=== PATIENT | female | born 1945 | race Caucasian/White ===

== ENCOUNTER 2017-12-26 14:12 | Observation (INO) | payer OTHER ==
[2017-12-26] MEDS ORDERED: 0.9 % SODIUM CHLORIDE 1,000 ML IV ONE (14:38)
[2017-12-26 14:40] LABS: BASOPHILS % 0.5 (0.0-1.5); EOSINOPHILS % 1.7 % (0.0-6.8); MEAN CORPUSCULAR HEMOGLOBIN 30.4 pg (28.0-34.0); MEAN CORPUSCULAR VOLUME 91.8 fl (80.0-100.0); MONOCYTES % 3.3 % (0.0-11.0); NEUTROPHILS # 6.7 # k/uL (1.4-7.7)
[2017-12-26 15:03] LABS: eGFR (African) > 60; eGFR (Non-African) > 60
[2017-12-26] MEDS ORDERED: LORazepam 2 MG/ML VIAL IVP ONE (15:53)
[2017-12-26] MEDS ORDERED: CloNIDine HCL 0.1 MG TABLET PO ONE ×2 (15:53→15:55)
[2017-12-26] MEDS ORDERED: LORazepam 2 MG/ML VIAL ONE (15:55)
--- NOTE | 2017-12-26 16:01 | ED Physician Documentation ---
General Adult - HISTORIAN Historian: patient - HPI Stated Complaint: dizziness Chief Complaint: General Adult Onset: days ago Timing: worse Further Comments: yes (72 year old female patient brought in from home by EMS. EMS report home was around 90 degree inside with only 1 window unit. Patient complaints of dizziness for the past few weeks, chronic back pain, lost her significant other 2 weeks ago. Stopped all of her daily medications 2-2.5 years ago. "I couldn't leave the house to go to the doctor." Patient complains of worsening anxiety and panic attacks. C/O palpitations.) - ROS CONST: no problems EYES/ENT: none CVS/RESP: other (palpitations) GI/: none MS/SKIN/LYMPH: back pain (chronic) NEURO/PSYCH: headache, dizziness, anxiety. denies: fainting, tingling, numbness, difficulty walking, difficulty with speech, depression - PAST HX Past History: hypertension, other (HLD, hypothyroidism, anxiety, agoraphobia) Surgeries/Procedures: hysterectomy, other (cataract surgery; skin cancer removed from right cheek) Allergies/Adverse Reactions: Allergies Allergy/AdvReac Type Severity Reaction Status Date / Time No Known Drug Allergies Allergy Verified 12/26/17 15:30 Home Medications: Ambulatory Orders Medication Instructions Recorded Diazepam 2 mg PO DAILY PRN u2 11/24/13 - SOCIAL HX Smoking History: cigarettes (1 ppd) Alcohol Use: other (3 beers per day) - FAMILY HX Family History: No - VITAL SIGNS Vital Signs: Vital Signs Temp Pulse Resp BP Pulse Ox 98.7 F 65 22 211/107 98 12/26/17 14:15 12/26/17 15:30 12/26/17 14:15 12/26/17 14:15 12/26/17 15:30 - REVIEWED ASSESSMENTS Nursing Assessment Reviewed: Yes Vitals Reviewed: Yes Progress - Progress Progress: Patient lives home alone; continues to c/o dizziness. Discussed plan of care w ith daughter. Offered observation admission to restart daily medications. Patient is fall risk due to dizziness. Recommended daily anxiety medication for panic attacks and agoraphobia. Patient is willing to stay observation. Will need to re-establish PCP. Call to Dr Nesbitt. Agrees with admission; will restart lisinopril/HCTZ, levothyroxine, and simvastatin. Will check HgbA1C, thyroid panel and FLP in AM. Will keep on tele due to cardiomegaly on xray and patient's continued c/o palpitations. Occasional PVC noted. - EKG/XRAY/CT EKG: rhythm (SR with occassional PVC. ) ED Results Lab/Radiology - Lab Results Lab Results: Lab Results 12/26/17 12/26/17 12/26/17 14:30 14:30 14:30 WBC 9.60 K/ul K/ul (4.00-12.00) RBC 5.06 M/ul M/ul (3.90-5.20) Hgb 15.4 g/dL g/dL (12.0-16.0) Hct 46.5 % % (34.5-46.5) MCV 91.8 fl fl (80.0-100.0) MCH 30.4 pg pg (28.0-34.0) MCHC 33.2 g/dL g/dL (30.0-36.0) RDW 14.2 % % (11.3-14.3) Plt Count 366 K/mm3 K/mm3 (130-400) Neut % (Auto) 70.0 % % (39.0-79.0) Lymph % (Auto) 23.5 % % (16.0-50.0) [place] % (Auto) 3.3 % % (0.0-11.0) Eos % (Auto) 1.7 % % (0.0-6.8) Baso % (Auto) 0.5 (0.0-1.5) Neut # (Auto) 6.7 # k/uL # k/uL (1.4-7.7) Lymph # (Auto) 2.3 # k/uL # k/uL (0.6-4.0) [place] # (Auto) 0.3 # k/uL # k/uL (0.0-0.9) Eos # (Auto) 0.2 # k/uL # k/uL (0.0-0.6) Baso # (Auto) 0.0 # k/uL # k/uL (0.0-0.5) Reactive Lymphs % 1.0 % % (0.0-5.0) Reactive Lymphs # 0.1 # k/uL # k/uL (0.0-0.8) Sodium 138 mmol/L mmol/L (136-145) Potassium 3.9 mmol/L mmol/L (3.5-5.1) Chloride 106 mmol/L mmol/L (98-107) Carbon Dioxide 22 mmol/L mmol/L (22-30) BUN 11 mg/dL mg/dL (7-17) Creatinine 0.70 mg/dL mg/dL (0.52-1.04) Est GFR ( Amer) > 60 (60 - ) Est GFR (Non-Af Amer) > 60 (60 - ) Glucose 144 mg/dL H mg/dL (74-106) Calcium 8.6 mg/dL mg/dL (8.4-10.2) Total Bilirubin 0.3 mg/dL mg/dL (0.2-1.3) AST 14 U/L L U/L (15-46) ALT 18 U/L U/L (13-69) Alkaline Phosphatase 80 U/L U/L (38-126) Troponin I < 0.03 ng/mL L ng/mL (0.03-0.06) Total Protein 7.4 g/dL g/dL (6.3-8.2) Albumin 3.9 g/dL g/dL (3.5-5.0) - Radiology Radiology Impressions: Chest, AP portable History: Cough, hypoxia Findings: No infiltrate, effusion or pneumothorax is present. The heart is enlarged. Pulmonary vascularity is normal. Left hilar enlargement is suspected. Correlation with prior studies is recommended. If further evaluation is desired, computed tomography may be helpful. Impression: Cardiomegaly. Possible left hilar enlargement. Electronically signed on Dec 26, 2017 3:08:31 PM CDT by: Alex Elkins - Orders Orders: ED Orders Category Date Time Status Continuous EKG monitoring Q30M Care 12/26/17 14:15 Active Continuous Pulse Oximetry Q30M Care 12/26/17 14:[address] IV Lock 1T Care 12/26/17 14:15 Active CHEST 1VIEW [RAD] Stat Exams 12/26/17 14:31 Taken CBC/PLATELET/DIFF Stat Lab 12/26/17 14:30 Completed CMP Stat Lab 12/26/17 14:30 Completed TROPONIN I (cTnI) Stat Lab 12/26/17 14:30 Completed UA W/MICRO IF INDICATED Stat Lab 12/26/17 14:15 Ordered 0.9 % Sodium Chloride [Normal Saline] 1,000 ml Med 12/26/17 14:38 Discontinued IV NOW CloNIDine HCL [Catapress] Med 12/26/17 15:55 Discontinued 0.1 mg PO .STK-MED ONE CloNIDine HCL [Catapress] Med 12/26/17 15:53 Once 0.1 mg PO NOW ONE LORazepam [Ativan] Med 12/26/17 15:53 Once 0.5 mg IVP NOW ONE LORazepam [Ativan] Med 12/26/17 15:55 Discontinued 2 mg .ROUTE .STK-MED ONE Oxygen Daily Oxygen 12/26/17 14:45 Ordered EKG WITH COMPARISON Stat Ther 12/26/17 14:30 Ordered General Adult Physical Exam - PHYSICAL EXAM GENERAL APPEARANCE: anxious EENT: eye inspection normal, ENT inspection normal, pharynx normal, PATT, no nystagmus RESPIRATORY: no resp distress, chest non-tender, breath sounds normal, other (crackles on right posterior base) CVS: reg rate & rhythm, heart sounds normal, equal pulses, no murmur, no gallop, PMI nml, no JVD, no friction rub, occasional extrasystoles ABDOMEN: soft, no organomegaly, normal bowel sounds, no abdominal bruit, no distension, other (obese) BACK: normal inspection, no CVA tenderness SKIN: normal color, warm/dry, NR, INT, PAL, DR EXTREMITIES: non-tender, normal range of motion, no evidence of injury, no edema, J, LIFE MANAGER NEURO: oriented X3, CN's nml as tested, motor nml, sensation nml, mood/affect nml Discharge Clincal Impression: Anxiety, Cardiomegaly, Tobacco abuse, Agoraphobia with panic attacks Hypertension Qualifiers: Hypertension type: essential hypertension Qualified Code(s): I10 - Essential (primary) hypertension Condition: Stable Disposition: ADMITTED INPATIENT Decision to Admit: [id number] Decision Time: 16:02
[2017-12-26] MEDS ORDERED: CITALOPRAM HYDROBROMIDE 20 MG TABLET PO ONE (16:22)
[2017-12-26] MEDS: SIMVASTATIN 40 MG TABLET PO SCH ×2 (17:16→20:10)
[2017-12-26] MEDS ORDERED: LEVOTHYROXINE SODIUM 25 MCG TABLET ONE (17:50)
[2017-12-26] MEDS ORDERED: CITALOPRAM HYDROBROMIDE 20 MG TABLET ONE (17:50)
[2017-12-26] MEDS ORDERED: LISINOPRIL 20 MG TABLET ONE (17:50)
[2017-12-26] MEDS ORDERED: SIMVASTATIN 40 MG TABLET ONE (17:50)
[2017-12-26] MEDS ORDERED: LEVOTHYROXINE SODIUM 100 MCG TABLET ONE (17:51)
[2017-12-26] MEDS: LEVOTHYROXINE SODIUM 100 MCG TABLET PO SCH (17:56)
[2017-12-26] MEDS: LISINOPRIL 20 MG TABLET PO SCH (17:56)
[2017-12-26] MEDS: LEVOTHYROXINE SODIUM 25 MCG TABLET PO SCH (17:56)
[2017-12-26 18:14] VITALS: BMI 39.4
[2017-12-26] MEDS ORDERED: ENOXAPARIN SODIUM 30 MG/0.3 ML DISP.SYRIN SQ ONE (18:24)
[2017-12-26] MEDS ORDERED: NICOTINE 21mg 1 EACH PATCH.TD24 TD ONE (18:25)
[2017-12-26] MEDS: NICOTINE 21mg 1 EACH PATCH.TD24 TD SCH (18:40)
[2017-12-26] MEDS ORDERED: ENOXAPARIN SODIUM 30 MG/0.3 ML DISP.SYRIN SQ SCH (20:00)
--- NOTE | 2017-12-26 20:06 | Diagnostic Imaging Report ---
PATRICIA BACK (BILLBOARD ERECTOR) - ER [facility] [id number] [facility].[address] [id number] Report Submission Date: Dec 26, 2017 3:08:31 PM CDT Patient Study Name: MARIE WETZEL Date: Dec 26, 2017 2:49:44 PM CDT Modality Type: DX Gender: F Description: CHEST : 49 Institution: [facility] Physician: PATRICIA BACK (BILLBOARD ERECTOR) - ER Chest, AP portable History: Cough, hypoxia Findings: No infiltrate, effusion or pneumothorax is present. The heart is enlarged. Pulmonary vascularity is normal. Left hilar enlargement is suspected. Correlation with prior studies is recommended. If further evaluation is desired , computed tomography may be helpful. Impression: Cardiomegaly. Possible left hilar enlargement. Electronically signed on Dec 26, 2017 3:08:31 PM CDT by: Alex DONIS
[2017-12-26] MEDS: SALINE FLUSH 10 ML DISP.SYRIN IV SCH (20:11)
[2017-12-27] MEDS ORDERED: LEVOTHYROXINE SODIUM 25 MCG TABLET ONE (00:48)
[2017-12-27] MEDS ORDERED: NICOTINE 21mg 1 EACH PATCH.TD24 TD ONE (00:48)
[2017-12-27] MEDS ORDERED: HYDROCHLOROTHIAZIDE 25 MG TABLET PO ONE (00:48)
[2017-12-27] MEDS ORDERED: LISINOPRIL 20 MG TABLET ONE (00:49)
[2017-12-27] MEDS ORDERED: LEVOTHYROXINE SODIUM 100 MCG TABLET ONE (00:49)
[2017-12-27] MEDS ORDERED: CITALOPRAM HYDROBROMIDE 20 MG TABLET ONE (00:49)
[2017-12-27] MEDS: LEVOTHYROXINE SODIUM 25 MCG TABLET PO SCH (06:01)
[2017-12-27] MEDS: LEVOTHYROXINE SODIUM 100 MCG TABLET PO SCH (06:01)
[2017-12-27] MEDS: SALINE FLUSH 10 ML DISP.SYRIN IV SCH (08:17)
[2017-12-27] MEDS: LISINOPRIL 20 MG TABLET PO SCH (08:17)
[2017-12-27] MEDS: NICOTINE 21mg 1 EACH PATCH.TD24 TD SCH (08:24)
[2017-12-27] MEDS ORDERED: HYDROCHLOROTHIAZIDE 25 MG TABLET PO SCH (09:00)
[2017-12-27] MEDS ORDERED: CITALOPRAM HYDROBROMIDE 20 MG TABLET PO ONE (09:00)
[2017-12-27 15:00] VITALS: BP 142/80
--- NOTE | 2018-01-23 09:55 | Discharge Summary ---
Discharge Summary - Discharge Sumary History of Present Illness: 72 year old female patient brought in from home by EMS. EMS report home was around 90 degree inside with only 1 window unit. Patient complaints of dizziness for the past few weeks, chronic back pain, lost her significant other 2 weeks ago. Stopped all of her daily medications 2-2.5 years ago. "I couldn' t leave the house to go to the doctor." Patient complains of worsening anxiety and panic attacks. C/O palpitations.Patient was seen in the emergency room was felt that would be helpful to admitted to observation care to try to control her anxiety and make some adjustments in her social condition.) Condition at Discharge: Stable Consultations this Visit: None Procedures this Visit: None Allergies/Adverse Reactions: Allergies Allergy/AdvReac Type Severity Reaction Status Date / Time No Known Drug Allergies Allergy Verified 12/26/17 15:30 Discharge Summary: When I came to see the patient she did not seem to be anxious at all. Patient states she has been having some difficulties with grieving related to her recent loss but feels that she is doing fairly well. Patient at this time does not want to take any medications for her anxiety. Patient was encouraged to consider getting some counseling. Social service consult was obtained. - Final Diagnosis (1) Anxiety Problems: stable
== END 2017-12-27 13:55 | disposition home or self-care (01) ==
LOC: ED 14:12 → SOUTH 16:17
PROVIDERS: ADMIT Family Medicine; ATTEND Family Medicine
DX: F41.8 Other specified anxiety disorders (principal); I51.7 Cardiomegaly; I10 Essential (primary) hypertension; F40.01 Agoraphobia with panic disorder; Z72.0 Tobacco use
CPT/HCPCS: 36415; 71045; 80053; 80061; 83036; 84439; 84443; 84481; 84484; 85025; 93005; G0378; J1650; J2060; J7030; 96365; 96375; 99217